=== PATIENT | male | born 1995 | race Caucasian/White ===

== ENCOUNTER 2021-02-12 23:02 | Emergency (ER) | payer MEDICAID ==
[~2021-02-12] VITALS: Ht 165.1 cm; Wt 63.5 kg
[2021-02-12 23:10] VITALS: BP_SYST 136
--- NOTE | 2021-02-12 23:10 | NUR ---
Pt to bed 4 for evaluation.
--- NOTE | 2021-02-12 23:22 | NUR ---
Tech at bedside cleaning laceration
--- NOTE | 2021-02-13 00:35 | NUR ---
ER Dr. Muñiz at bedside examining patient.
[2021-02-13] MEDS ORDERED: LIDOCAINE/EPI 1% 1:100000 20 ML VIAL INJ ONE (00:45)
--- NOTE | 2021-02-13 00:57 | NUR ---
Dr. Muñiz at bedside for laceration repair.
--- NOTE | 2021-02-13 01:09 | NUR ---
Patient transported to radiology via gurney, accompanied by staff.
--- NOTE | 2021-02-13 01:20 | NUR ---
Returned from radiology, back to [facility].
--- NOTE | 2021-02-13 01:30 | NUR ---
Dr. Muñiz placed 4 carissa. Bleeding controlled
[2021-02-13] MEDS ORDERED: BACITRACIN 1 GM OINT TP ONE (01:44)
[2021-02-13] MEDS ORDERED: DIPH-TET-PERTUS Vaccine 0.5 ML VIAL (ADACEL) I.M. ONE ×2 (02:09→02:15)
[2021-02-13] MEDS ORDERED: BACI15OI13 TP (02:23)
[2021-02-13 02:30] VITALS: BP_SYST 128
--- NOTE | 2021-02-13 02:30 | NUR ---
Patient given written and verbal discharge instructions and verbalizes understanding. ER MD discussed with patient the results and treatment provided. Patient in stable condition. ID arm band removed. NO IV Rx of bacitracin given. Patient educated on pain management and to follow up with PMD. Pain Scale 0/10. Opportunity for questions provided and answered. Medication side effect fact sheet provided.
== END 2021-02-13 02:30 | disposition home or self-care (01) ==
LOC: SED 23:02
DX: S01.01XA Laceration without foreign body of scalp, initial encounter (principal); W22.8XXA Striking against or struck by other objects, initial encounter; Y93.89 Activity, other specified; Y92.89 Other specified places as the place of occurrence of the external cause; Y99.8 Other external cause status
CPT/HCPCS: 70450-TC; 76376; 90715; 99284

== ENCOUNTER 2021-02-27 11:57 | Emergency (ER) | payer MEDICAID ==
[~2021-02-27] VITALS: Ht 165.1 cm; Wt 63.5 kg
[~2021-02-27 11:57] MED LIST: BACI15OI13 TP
[2021-02-27 12:37] VITALS: BP_SYST 134
--- NOTE | 2021-02-27 12:41 | NUR ---
Patient triaged and placed in waiting room. VSS and patient appears in no acute distress at this time. Accompanied by FRIEND, awaiting available bed, and MD notified of need for MSE.
--- NOTE | 2021-02-27 14:35 | NUR ---
PT TO [facility] FOR EVALUATION.
--- NOTE | 2021-02-27 14:40 | NUR ---
Dr. Olivares to [facility] to remove carissa. 4 carissa removed from scalp.
--- NOTE | 2021-02-27 14:40 | NUR ---
Pt AAO and ambulatory reporting that staple removal was required. Pt has carissa placed 14 days ago after a mechanical fall. Wound is approximated with a scab holding wound together.
[2021-02-27] MEDS ORDERED: BACITRACIN 1 GM OINT TP ONE (14:54)
[2021-02-27] MEDS ORDERED: BACI15OI13 TP (14:55)
[2021-02-27 15:01] VITALS: BP_SYST 134
--- NOTE | 2021-02-27 15:01 | NUR ---
Patient given written and verbal discharge instructions and verbalizes understanding. Dr. Olivares. ER MD discussed with patient the results and treatment provided. Patient in stable condition. ID arm band removed. Rx of given. Patient educated on pain management and to follow up with PMD. Pain Scale 0/10. Opportunity for questions provided and answered. Medication side effect fact sheet provided.
== END 2021-02-27 15:01 | disposition home or self-care (01) ==
LOC: SED 11:57
DX: S01.01XD Laceration without foreign body of scalp, subsequent encounter (principal); Z48.02 Encounter for removal of sutures; Z79.899 Other long term (current) drug therapy; X58.XXXD Exposure to other specified factors, subsequent encounter
CPT/HCPCS: 99282